=== PATIENT | male | born 1990 | race Asian ===

== ENCOUNTER 2020-05-31 09:14 | Emergency (ER) | payer OTHER ==
[2020-05-31 09:22] VITALS: BP 142/84; PULSE 70; BMI 29.7
[2020-05-31 09:23] VITALS: TEMP 97.8
[2020-05-31 11:51] LABS: BASO % 0.3 % (0-2.0); HEMATOCRIT 45.9 % (35.4-49); HEMOGLOBIN 15.2 GM/dL (11.7-16.9); LYMPH % 15.4 % (8-40); MCH 27.7 pg (25.7-33.7); MCHC 33.1 g/dl (32.0-35.9); MEAN CELL VOLUME 83.7 fl (80-96); MEAN PLT VOLUME 9.8 fl (7.5-11.1); MONO % 4.8 % (3.8-10.2); NEUT % 78.5 % (42.8-82.8); PLATELET COUNT 203 K/MM3 (134-434); RBC 5.49 M/mm3 (4.00-5.60); RDW 13.7 % (11.9-15.9)
[2020-05-31 12:01] LABS: EPI CELLS 4 /uL (0-25.1); HYALINE CASTS 0 /uL (0-3.1); PH,URINE 6.5 (5.0-8.0); URINE APPEARANCE CLEAR; URINE BACTERIA 182 /uL (0-1359); URINE BILIRUBIN NEGATIVE (NEGATIVE); URINE COLOR YELLOW; URINE GLUCOSE (UA) NEGATIVE (NEGATIVE); URINE KETONE TRACE (NEGATIVE); URINE LEUK ESTERASE NEGATIVE (NEGATIVE); URINE NITRITE NEGATIVE (NEGATIVE); URINE PROTEIN NEGATIVE (NEGATIVE); URINE RBC 334 /uL (0-23.9); URINE UROBILINOGEN 0.2 mg/dL (0.2-1.0); URINE WBC 4 /uL (0-25.8)
[2020-05-31 12:27] LABS: POTASSIUM 4.7 mmol/L (3.5-5.1)
[2020-05-31 12:30] LABS: ALBUMIN 4.2 g/dl (3.4-5.0); BLOOD UREA NITROGEN 6.5 mg/dL (7-18)
[2020-05-31 12:33] LABS: CREATININE 0.9 mg/dL (0.55-1.3)
[2020-05-31 12:35] LABS: BILIRUBIN,TOTAL 0.5 mg/dL (0.2-1); TOT PROT 7.8 g/dl (6.4-8.2)
== END 2020-05-31 15:07 | disposition home or self-care (01) ==
LOC: JER 09:14
DX: R10.31 Right lower quadrant pain (principal)
CPT/HCPCS: 36415; 74176-TC; 80053; 81003; 85025; 87086; 99284-25